=== PATIENT | male | born 1985 | race Caucasian/White ===

== ENCOUNTER 2022-11-08 15:40 | Observation (INO) | payer BC, SELFPAY ==
[2022-11-08] VITALS (21 sets, daily range): BP systolic 145–252; BP diastolic 73–140; PULSE 61–94; RESP 15–28; TEMP 36.5–36.8; O2SAT 93–99; BMI 26.2; BMI 26.5
--- NOTE | ~2022-11-08 | XR_ITS ---
EXAMINATION: XR chest 2V 11/08/2022 16:07 INDICATION: Chest pain PROCEDURE: 2 view chest COMPARISON: No prior studies for comparison. FINDINGS: The lungs are clear. The cardiomediastinal silhouette is within normal limits. There are no pleural effusions. There is no pneumothorax suspected. IMPRESSION: 1: NO ACUTE CARDIOPULMONARY DISEASE. Reviewed, dictated and finalized at location A.
--- NOTE | ~2022-11-08 | CT_ITS ---
EXAMINATION: CTA chest DATE: 11/08/2022 20:08 INDICATION: Chest pain TECHNIQUE: Computed tomographic angiography (CTA) of the chest was performed with 100 mL Omnipque-350 intravenous contrast. Maximum intensity projection 3D-reconstructions of the aorta and other arterie s were constructed by the technologist on a separate workstation. The dose-length product (DLP) was 4 43.15 mGy-cm. Automated exposure control and iterative reconstruction technique were employed. COMPARISON: None. FINDINGS: There is no aneurysm or dissection of the thoracic aorta. No pathologically enlarged thorac ic lymph nodes are identified. The heart size is normal. The lungs are free of acute opacities. No pl eural effusion or pneumothorax. There is mild thoracic spondylosis. IMPRESSION: 1. No aneurysm or dissection of the thoracic aorta. Reviewed, dictated and finalized at location F.
--- NOTE | 2022-11-08 15:41 | ECG_ITS ---
Measurements Intervals [place] Rate: 95 P: 16 RI: 135 QRS: 3 QRSD: 106 T: 70 QT: 346 QTc: 435 Interpretive Statements SINUS RHYTHM LEFT VENTRICULAR HYPERTROPHY AND ST-T CHANGE PEAKED T WAVES- CONSIDER HYPERKALEMIA ABNORMAL ECG NO PREVIOUS ECG AVAILABLE FOR COMPARISON Electronically Signed On 11-08-2022 15:48:09 CDT by Remi Ball D.O.
[2022-11-08 16:02] LABS: Basophils Absolute Auto 0.1 K/mm3 (0.0-0.1); Basophils Percent Auto 0.9 % (0.2-1.2); Eosinophils Absolute Auto 0.1 K/mm3 (0-0.3); Eosinophils Percent Auto 1.1 % (0-4.4); Hematocrit 47.6 % (42.0-52.0); Hemoglobin 16.4 g/dL (14.0-18.0); Immature Granulocyte Absolute 0.03 K/mm3 (0.00-0.031); Immature Granulocyte Percent A 0.3 % (0-0.5); Lymphocytes Absolute Auto 3.21 K/mm3 (0.9-3.2); Lymphocytes Percent Auto 30.7 % (18.3-44.2); Mean Corpuscular HGB Conc 34.5 g/dl (32-36); Mean Corpuscular Hemoglobin 29.3 pg (26-34); Mean Platelet Volume 9.5 fl (7.4-10.4); Monocytes Absolute Auto 0.9 K/mm3 (0.1-0.6); Monocytes Percent Auto 8.9 % (2.6-8.5); Neutrophils Absolute Auto 6.1 K/mm3 (1.3-6.7); Neutrophils Percent Auto 58.1 % (45.5-73.1); Platelet Count Result 254 k/mm3 (150-375); Red Cell Distribution Width 13.6 % (11.5-14.5); White Blood Count 10.5 K/mm3 (4.5-10.0)
[2022-11-08 16:12] LABS: Alanine Aminotransferase 26 U/L (6-50); Alkaline Phosphatase 53 U/L (38-126); Anion Gap 7 mmol/L (8-16); Aspartate Amino Transferase 27 U/L (17-59); Blood Urea Nitrogen 16 mg/dL (9-20); Carbon Dioxide 29 mmol/L (22-30); Chloride 103 mmol/L (98-107); Estimated CRCL calculation 127 ml/min; Estimated Glomerular Filt Rate > 60; Glucose 107 mg/dL (65-110); Lipase 196 U/L (23-300); Potassium 3.7 mmol/L (3.4-5.0); Sodium 139 mmol/L (137-145)
[2022-11-08 16:14] LABS: INR 1.1; Partial Thromboplastin Time 26.3 SECONDS (22.3-36.8); Prothrombin Time 13.4 Seconds (11.1-14.7)
[2022-11-08 16:24] LABS: Troponin I < 0.012 ng/mL (0.000-0.034)
--- NOTE | 2022-11-08 16:58 | ED.CHESTPAIN ---
HPI - Chest Pain General Chief Complaint: Chest Pain Stated Complaint: CP, high BP Time Seen by Provider: 11/08/22 15:54 Source: patient and family Mode of arrival: ambulatory Limitations: no limitations History of Present Illness HPI narrative: 37 years old white female presents with chest discomfort over the last few months, getting worse, and intermittent palpitation, weird feeling unable to explain. Intermittent tightness of left arm, could not sleep last night, went to work today, continue and went to home elderly. Patient denies any medical history, smokes, uses marijuana, drinks occasionally, increased drinking lately. Currently feeling weird across the chest unable to specify. He denies any fever, chills, nausea, vomiting shortness of breath Related Data Home Medications Medication Instructions Recorded Confirmed No Home Medications 11/08/22 11/08/22 Allergies Allergy/AdvReac Type Severity Reaction Status Date / Time No Known Allergies Allergy Verified 11/08/22 16:11 Review of Systems Review of Systems: All systems reviewed & are unremarkable except as noted in HPI and below Exam Narrative: General appearance: Well-developed, well-nourished Skin: Normal color Head: Normocephalic, nontraumatic Eyes: Clear conjunctiva ENT: Oropharynx normal, ears normal, nose normal Neck: Supple, nontender Chest and respiratory: Airway patent, no respiratory distress, no accessory muscle use Heart: Regular rate/rhythm Abdomen: Soft, nontender, no organomegaly, quiet bowel sounds Vascular: Normal peripheral pulses, normal capillary refill. Musculoskeletal: Normal range of motion, nontender back Neurologic: Alert and oriented ?3, [employer]CE is normal as tested, no gross motor deficit Course Reevaluation(s) Reevaluation #1: Patient feeling much better after receiving Lopressor and Nitropaste. Date: 11/08/22 Time: 18:58 Consultations Consultation #1: Dr. Beck, admit to hospitalist, nifedipine 30 mg p.o. daily Date: 11/08/22 Time: 18:58 Vital Signs Vital signs: Vital Signs Pulse Rate 93 11/08/22 15:50 Respiratory Rate 20 11/08/22 15:50 Blood Pressure 252/124 H 11/08/22 15:50 Pulse Oximetry 98 11/08/22 15:50 Oxygen Delivery Room Air 11/08/22 15:50 Temperature 36.8 C 11/08/22 15:56 Pulse Rate 65 11/08/22 18:03 Respiratory Rate 16 11/08/22 18:03 Blood Pressure 195/120 H 11/08/22 18:03 Pulse Oximetry 97 11/08/22 18:03 Oxygen Delivery Room Air 11/08/22 15:56 MDM - Chest Pain MDM Narrative Medical decision making narrative: Patient presents with intermittent chest pain, arm pain, palpitation, got worse lately, could not work today and came to our emergency room with chest discomfort unable to explain. Blood pressure on arrival 252/124. Patient does not take medicine at home, he smokes cigarettes and drinks almost daily denying any drug use. EKG on arrival showed LVH criteria with ST-T changes. Differential diagnosis cardiomegaly secondary to uncontrolled hypertension, coronary artery disease. Work-up today showed troponin of less than 0.012, chest x-ray showed no abnormality. Patient received Lopressor 5 mg IV x 3, Nitropaste 1 inch. Blood pressure dropped 189/106 with heart rate 62/min then nifedipine [address] Beck was consulted, patient will be admitted to IMU for further evaluation. Lab Data 11/08/22 15:55 11/08/22 15:55 Labs: Lab Results 11/08/22 11/08/22 11/08/22 Range/Units 15:55 15:55 15:55 WBC 10.5 H (4.5-10.0) K/mm3 RBC 5.60 (4.6-6.20) M/mm3 Hgb 16.4 (14.0-18.0) g/dL Hct 47.6 (42.0-52.0) % MCV 85.0 (80-100) fl [facility]
[2022-11-08] MEDS: ASPIRIN 81 MG CHEWABLE TABLET 324 MG PO (17:20)
[2022-11-08] MEDS: NITROGLYCERIN OINTMENT 1 INCH DOSE TRANSDERM ×2 (17:21→18:36)
[2022-11-08] MEDS: METOPROLOL TARTRATE INJ 5 MG/5 ML VIAL IV PUSH ×3 (17:22→17:32)
[2022-11-08 18:43] LABS: NT Pro B Type Natriuretic Pept 277 pg/mL (19.9-100)
[2022-11-08 19:02] LABS: Troponin I < 0.012 ng/mL (0.000-0.034)
--- NOTE | 2022-11-08 19:19 | PC.NURSE ---
RN assumed care. Received report from Cat RN
[2022-11-08] MEDS: NIFEdipine 10 MG CAPSULE 30 MG PO (20:01)
[2022-11-08 21:34] LABS: Amphetamine Screen Urine Negative (Negative); Barbiturate Screen Urine Negative (Negative); Benzodiazepines Screen Urine Negative (Negative); Cannabinoid Screen Urine Positive (Negative); Cocaine Screen Urine Negative (Negative); Methadone Screen Urine Negative (Negative); Opiate Screen Urine Negative (Negative); Phencyclidine Screen Urine Negative (Negative)
--- NOTE | 2022-11-08 21:41 | ADMGEN ---
This patient, Nando Mcdonald, was admitted to IMU Room 210-01 at 2115. Patient/family oriented to hospital policies and general routines including ID bracelet, bed and alarms, visiting hours, pain management, procedures, bathroom and other care routines, personal items, smoking policy, room service/diet, and visiting hours. Information on how to activate the Rapid Response Team has been discussed. Patient/Family are encouraged to report perceived risks to care and to ask questions if they do not understand what they are told or what they should do.
[2022-11-08 22:21] LABS: Troponin I < 0.012 ng/mL (0.000-0.034)
[2022-11-09] VITALS (17 sets, daily range): BP systolic 159–203; BP diastolic 92–109; PULSE 58–88; RESP 14–20; TEMP 36.4–37; O2SAT 97–100
--- NOTE | 2022-11-09 | ECHO_ITS ---
Patient Info Name: Nando Mcdonald Age: 37 years : 1985 Gender: Male Ht: 70 in Wt: 182 lbs BSA: 2.03 m2 HR: 58 bpm BP: 159 / 92 mmHg Heart Rhythm: Sinus Rhythm Technical Quality: Good Exam Date: 11/09/2022 7:39 AM Exam Location: [facility] Card Pulmonary Patient Status: Inpatient Admit Date: 11/08/2022 Staff Ordering Physician: Antonino Alberto MD Student Services Rep: Shanti Arthur RDCS Attending Provider: June Small DO Referring Physician: Remy PORTILLO; Exam Type: CA echo doppler color flow Study Info Indications I10 - Essential (primary) hypertension Complete two-dimensional, color flow and Doppler transthoracic echocardiogram is performed. Summary 1. Complete two-dimensional, color flow and Doppler transthoracic echocardiogram is performed. 2. Left ventricular chamber dimension is normal. 3. Left ventricular systolic function is normal, estimated at 65-70%. 4. There is severe concentric increased left ventricular wall thickness. 5. The left ventricular diastolic function is grade I diastolic dysfunction. 6. Right ventricular systolic function is normal. 7. Left atrial chamber dimension is severely enlarged. 8. Right atrial chamber dimension is mildly enlarged. 9. There is trace mitral valve regurgitation. 10. There is trace tricuspid valve regurgitation. Left Ventricle Left ventricular chamber dimension is normal. Left ventricular systolic function is normal, estimated at 65-70%. There is severe concentric increased left ventricular wall thickness. The left ventricular diastolic function is grade I diastolic dysfunction. Right Ventricle Right ventricular chamber dimension is normal. Right ventricular systolic function is normal. Left Atria Left atrial chamber dimension is severely enlarged. Right Atria Right atrial chamber dimension is mildly enlarged. Atrial Septum Intact interatrial septum visualized by color flow imaging. Aortic Valve The aortic valve is probable trileaflet. There is no aortic valve stenosis. There is no aortic valve regurgitation. Pulmonic Valve The pulmonic valve is not well visualized. Mitral Valve The mitral valve has normal leaflets. There is no mitral valve stenosis. There is trace mitral valve regurgitation. Tricuspid Valve There is no significant tricuspid valve stenosis. There is trace tricuspid valve regurgitation. Pericardium/Pleural There is no pericardial effusion. Inferior Vena Cava Normal inferior vena cava with >50% collapse upon inspiration consistent with normal right atrial pressure, 3 mmHg. Aorta The aortic root size at the sinus of Valsalva is normal. Left Ventricular Outflow Tract Name Value Normal LVOT 2D LVOT Diameter 2.0 cm LVOT Doppler LVOT Peak Gradient 8 mmHg LVOT Mean Gradient 4 mmHg LVOT VTI 24 cm LVOT VTI/AV VTI Ratio 0.8 LVOT Stroke Volume 75 ml LVOT CO 5.0 l/min LVOT CI 2.
--- NOTE | 2022-11-09 00:07 | PM.IMHP ---
H&P: HPI History of Present Illness Date/Time: 11/09/22 00:07 Chief Complaint: Chest pain Narrative: Patient is a 37-year-old male with no past medical history, has not been to a doctor in years, coming in for on and off chest pains for over a month patient says that he would have some substernal chest pain not associated with any exertional activity on and off for about 1-2 months now he said that when these episodes happen he would feel a little bit of numbness on his left arm. He denies any headache or syncopal episode or loss of consciousness. Sometimes she would feel some palpitations. He denies any fever, nausea vomiting diarrhea or dysuria. He said that the episodes have been increasing in frequency lately that is why he came to the emergency room. On arrival patient had a blood pressure reading of 200/130 for which he was given metoprolol 5 mg IV x3 cardiology was consulted and recommended nifedipine 30 mg as well patient says he has no history of hypertension and denies any history of hypertension in his family as well. He said he used to drink alcohol heavily but has stopped that for years and now would only drink occasionally on weekends. He smokes half a pack a day for about 20 years. He denies any IV drug use but admits to some marijuana use. He says he does not take any home meds. Review of Systems Review of Systems: no fever or weight loss no vision changes, no eye discharge no throat pain, no hoarseness, no lymphadenopathy Minimal chest pain, occasional palpitations no coughing, no wheezing no abdominal pain, no diarrhea, no nausea, no vomiting no dysuria, no vaginal discharge no leg swelling, no edema no suicidal or homicidal ideation [facility] Family History Family History (Updated 11/08/22 @ 21:39 by Haritha Bishop RN) Other Unknown family medical history Social History Social History Smoking packs per day: 0.5 Smoking cigarettes per day: 10.0 Smoking status: Current every day smoker Tobacco type: cigarettes Alcohol intake: current Drinks per week: 5 Substance use: current Substance use type: marijuana Lack of Transportation: No Lack of Food: Never True Current Housing: I Have Housing Concerned About Future Housing: No Difficulty Paying Gas/Electric Bills: No Difficulty Paying for Meds: No Currently Unemployed: No Education: Associate Degree Difficulty w/ Childcare or Family Care: No Spiritual care concerns: No Meds Home Medications and Allergies Home Medications Medication Instructions Recorded Confirmed Type No Home Medications 11/08/22 11/08/22 History Allergies Allergy/AdvReac Type Severity Reaction Status Date / Time No Known Allergies Allergy Verified 11/08/22 16:11 Vital Signs Vital Signs - 24 hr 11/08/22 15:56 11/08/22 15:50 11/08/22 15:50 Temperature 98.3 F Pulse Rate 94 93 Respiratory Rate 24 H 20 Blood Pressure 248/140 H 252/124 H Pulse Oximetry 99 98 Oxygen Delivery Room Air Room Air 11/08/22 17:22 11/08/22 17:27 11/08/22 17:32 Temperature Pulse Rate 86 73 70 Respiratory Rate Blood Pressure Pulse Oximetry Oxygen Delivery 11/08/22 18:03 11/08/22 16:31 11/08/22 16:46 Temperature Pulse Rate 65 89 94 Respiratory Rate 16 27 H 21 H Blood Pressure 195/120 H 219/126 H 222/116 H Pulse Oximetry 97 94 97 Oxygen Delivery 11/08/22 17:16 11/08/22 17:21 11/08/22 17:45 Temperature Pulse Rate 81 84 68 Respiratory Rate 26 H 28 H 27 H Blood Pressure 206/126 H 230/126 H 223/134 H Pulse Oximetry 93 94 95 Oxygen Delivery 11/08/22 18:13 11/08/22 18:33 11/08/22 19:00 Temperature Pulse Rate 65 62 61 Respiratory Rate 22 H 23 H 21 H Blood Pressure 195/120 H 189/106 H 176/97 H Pulse Oximetry 95 96 95 Oxygen Delivery 11/08/22 19:13 11/08/22 20:00 11/08/22 20:00 Temperature 98.3 F Pulse Rate 67 Respiratory Rate
[2022-11-09] MEDS: ASPIRIN 81 MG CHEWABLE TABLET PO (08:51)
[2022-11-09] MEDS: hydroCHLOROthiazide 25 MG TABLET PO (09:58)
[2022-11-09] MEDS: NIFEdipine 30 MG TAB.ER.24 PO (09:58)
--- NOTE | 2022-11-09 11:08 | PM.CNCAR ---
Assessment and Plan Assessment and plan (1) Hypertension, uncontrolled: Code(s): I10 - Essential (primary) hypertension Status: Acute Assessment and Plan: Continue with Nifedipine. Will add HCTZ. Echocardiogram pending. If echocardiogram is without significant abnormality, and his blood pressure is controlled, then can discharge home from my standpoint. He does not have a PCP but is working on making an appointment with one. (2) Chest pain: Code(s): R07.9 - Chest pain, unspecified Status: Acute Assessment and Plan: Resolved. Likely due to severe uncontrolled blood pressure. Troponins negative. EKG without ischemic changes. History of Present Illness History of Present Illness Consult date/time: 11/09/22 11:08 Requesting physician: Antonino Alberto MD Consult reason: chest pain and hypertension Reason For Visit: Chest Pain/Uncontrolled Hypertension/Abnormal EKG Narrative: We are consulted for chest pain, hypertension. This is a 37-year-old male who no past medical history who presented with chest pain for about the past month. Not associated with exertion. In the ER, patient noted to be significantly hypertensive with BP of 252/124. No known history of hypertension. Does not take any medications at home. EKG showed sinus rhythm, LVH with secondary repolarization abnormalities. Troponins are negative. Patient given Metoprolol IV 5mg x 3 and Nifedipine 30mg x 1. Patient states his symptoms resolved when his blood pressure got better. Denies any symptoms this morning. States he feels great and wishes to go home. Review of Systems Review of Systems: All systems reviewed & are unremarkable except as noted in HPI and below (HPI) [facility] Family History Family History Other Unknown family medical history Social History Social History Smoking packs per day: 0.5 Smoking cigarettes per day: 10.0 Smoking status: Current every day smoker Tobacco type: cigarettes Alcohol intake: current Drinks per week: 5 Substance use: current Substance use type: marijuana Lack of Transportation: No Lack of Food: Never True Current Housing: I Have Housing Concerned About Future Housing: No Difficulty Paying Gas/Electric Bills: No Difficulty Paying for Meds: No Currently Unemployed: No Education: Associate Degree Difficulty w/ Childcare or Family Care: No Spiritual care concerns: No Meds Home Medications and Allergies Home Medications Medication Instructions Recorded Confirmed Type No Home Medications 11/08/22 11/08/22 History Allergies Allergy/AdvReac Type Severity Reaction Status Date / Time No Known Allergies Allergy Verified 11/08/22 16:11 Vital Signs Vital Signs - 24 hr 11/08/22 15:56 11/08/22 15:50 11/08/22 15:50 Temperature 36.8 C Pulse Rate 94 93 Respiratory Rate 24 H 20 Blood Pressure 248/140 H 252/124 H Pulse Oximetry 99 98 Oxygen Delivery Room Air Room Air 11/08/22 17:22 11/08/22 17:27 11/08/22 17:32 Temperature Pulse Rate 86 73 70 Respiratory Rate Blood Pressure Pulse Oximetry Oxygen Delivery 11/08/22 18:03 11/08/22 16:31 11/08/22 16:46 Temperature Pulse Rate 65 89 94 Respiratory Rate 16 27 H 21 H Blood Pressure 195/120 H 219/126 H 222/116 H Pulse Oximetry 97 94 97 Oxygen Delivery 11/08/22 17:16 11/08/22 17:21 11/08/22 17:45 Temperature Pulse Rate 81 84 68 Respiratory Rate 26 H 28 H 27 H Blood Pressure 206/126 H 230/126 H 223/134 H Pulse Oximetry 93 94 95 Oxygen Delivery 11/08/22 18:13 11/08/22 18:33 11/08/22 19:00 Temperature Pulse Rate 65 62 61 Respiratory Rate 22 H 23 H 21 H Blood Pressure 195/120 H 189/106 H 176/97 H Pulse Oximetry 95 96 95 Oxygen Delivery 11/08/22 19:13 11/08/22 20:00 11/08/22 20:00 Temperature 36.8 C Pulse Rate
--- NOTE | 2022-11-09 12:23 | PC.NURSE ---
Notified Dr. Perry of patient's BP of 191/105 at 1130. Pt received anti-hypertensive medications at 1000. This RN rechecked BP at 1215 at it was 220/110. Dr. Perry will add another anti-hypertensive medication, and we will continue to monitor.
--- NOTE | 2022-11-09 16:15 | PC.NURSE ---
Notified Dr. Rob of elevated BP of 203/103 L arm and 203/105 R arm. Pt also requesting a Nicotine patch at this time. Dr. Perry has placed an order for 25mg PO of Hydralazine q6h PRN for SBP >180. This RN will administer this now with the Nicotine patch and recheck BP in about an hour.
[2022-11-09] MEDS: NICOTINE (*PBKC) 21 MG PATCH 1 PATCH TRANSDERM (16:24)
[2022-11-09] MEDS: hydrALAZINE HCL 25 MG TABLET PO (16:24)
--- NOTE | 2022-11-09 17:43 | PM.IMPN ---
Progress Note: A&P Assessment and Plan (1) Hypertension, uncontrolled: Code(s): I10 - Essential (primary) hypertension Status: Acute Assessment and Plan: Patient came in with chest pain and elevated blood pressure of up to 200/130. CTA was ordered but no aneurysm or dissection of the thoracic aorta seen. He was given metoprolol IV 5 mg x 3 as well as nifedipine 30 mg. Nifedipine adjusted and hydrochlorothiazide was added. EKG showed LVH with ST T wave changes in peaked T-waves. Potassium was normal. Echocardiogram showed EF of 65-70% with severe concentric LV wall thickness and grade 1 diastolic dysfunction. He also had severe left atrial enlargement and mild right atrial enlargement. Lifestyle and dietary modifications including low-salt diet have been stressed. Advised to follow up with the PCP for further follow-up. Hydralazine available as needed. Will add losartan. a (2) Chest pain: Code(s): R07.9 - Chest pain, unspecified Status: Acute Assessment and Plan: Patient came in with chest pain and elevated blood pressure. Troponins are negative. EKG shows LVH consistent with longstanding hypertension. No acute ST or T-wave changes seen. Patient currently chest pain-free. Follow on tele (3) Tobacco abuse: Code(s): Z72.0 - Tobacco use Status: Acute Assessment and Plan: Nicotine patch ordered. Patient was educated about the benefits of smoking cessation. Subjective Date/time seen: 11/09/22 17:43 Interval history: 37yo healthy male here for chest pain and found to have HTN. Assuming care. Chart reviewed. He feels well. No chest pain. No shortness of breath. No headaches. He has a family history of hypertension. He does mention that when he was teenager it was noted that his blood pressure was elevated at that time. Family also states that the patient does have some issues with anxiety. Exam Narrative: AF 97.6 203/105 64 14 100% ra Gen - NARD Chest - CTA bilaterally, nml RR CV - RRR S1/S2. Telemetry showing no significant dysrhythmias Abd - Soft, NT/ND, Positive BS Ext - No pedal edema Neuro - Alert and oriented. Nonfocal exam. Psych - Nml mood and affect Skin - Warm and dry Objective Data Vital Signs Vital Signs: Vital Signs - 24 hr 11/08/22 18:03 11/08/22 17:45 11/08/22 18:13 Temperature Pulse Rate 65 68 65 Respiratory Rate 16 27 H 22 H Blood Pressure 195/120 H 223/134 H 195/120 H Pulse Oximetry 97 95 95 Oxygen Delivery 11/08/22 18:33 11/08/22 19:00 11/08/22 19:13 Temperature 98.3 F Pulse Rate 62 61 Respiratory Rate 23 H 21 H Blood Pressure 189/106 H 176/97 H Pulse Oximetry 96 95 Oxygen Delivery 11/08/22 20:00 11/08/22 20:00 11/08/22 20:30 Temperature Pulse Rate 67 76 Respiratory Rate 17 15 Blood Pressure 179/95 H 179/95 H Pulse Oximetry 97 99 Oxygen Delivery 11/08/22 20:45 11/08/22 21:20 11/08/22 22:30 Temperature 97.7 F Pulse Rate 87 90 Respiratory Rate 21 H 20 Blood Pressure 155/73 H Pulse Oximetry 96 98 Oxygen Delivery Room Air 11/08/22 22:00 11/08/22 23:24 11/08/22 23:33 Temperature 97.8 F Pulse Rate 79 68 Respiratory Rate 20 Blood Pressure 145/77 H Pulse Oximetry 97 Oxygen Delivery Room Air 11/09/22 00:00 11/09/22 03:40 11/09/22 04:00 Temperature Pulse Rate 64 58 L Respiratory Rate Blood Pressure Pulse Oximetry Oxygen Delivery Room Air 11/09/22 04:00 11/09/22 08:00 11/09/22 08:00 Temperature 98.0 F 98.5 F Pulse Rate 58 L 65 Respiratory Rate 18 14 Blood Pressure 159/92 H 186/98 H Pulse Oximetry 97 100 100 Oxygen Delivery Room Air 11/09/22 08:00 11/09/22 10:00 11/09/22 12:00 Temperature 98.5 F Pulse Rate 62 68 71 Respiratory Rate 20 Blood Pressure 191/105 H Pulse Oximetry 100 Oxygen Delivery 11/09/22 12:00 11/09/22 12:00 11/09/22 13:27 Temperature Pulse Rate 74 Respiratory
--- NOTE | 2022-11-09 17:52 | PC.NURSE ---
This RN rechecked BP an hour after administering PO hydralazine. BP's are: L arm 200/109, R arm 194/107. Dr. Rob at bedside at this time and aware of pressures.
[2022-11-09] MEDS: LOSARTAN POTASSIUM 25 MG TABLET PO (18:58)
[2022-11-09] MEDS: LORazepam INJ (*CRX) 2 MG/ML VIAL 0.5 MG IV PUSH (21:09)
[2022-11-09] MEDS: METOPROLOL TARTRATE INJ 5 MG/5 ML VIAL IV PUSH (23:28)
[2022-11-10] VITALS (12 sets, daily range): BP systolic 166–193; BP diastolic 100–113; PULSE 60–85; RESP 16–20; TEMP 36.7–37; O2SAT 97–99
--- NOTE | 2022-11-10 00:01 | PCRCNOTE ---
2255: Pt placed on apnea link.
[2022-11-10 04:33] LABS: Alanine Aminotransferase 24 U/L (6-50); Albumin Level 4.4 g/dL (3.5-5.1); Alkaline Phosphatase 44 U/L (38-126); Anion Gap 7 mmol/L (8-16); Aspartate Amino Transferase 22 U/L (17-59); Bilirubin Indirect 3.4 mg/dL (0-1.1); Bilirubin,Total 3.3 mg/dL (0.2-1.3); Blood Urea Nitrogen 15 mg/dL (9-20); Calcium 8.7 mg/dL (8.4-10.2); Carbon Dioxide 31 mmol/L (22-30); Chloride 101 mmol/L (98-107); Estimated CRCL calculation 113 ml/min; Estimated Glomerular Filt Rate > 60; Glucose 101 mg/dL (65-110); Potassium 3.8 mmol/L (3.4-5.0); Sodium 139 mmol/L (137-145)
[2022-11-10] MEDS: NIFEdipine 30 MG TAB.ER.24 PO ×2 (08:31→17:56)
[2022-11-10] MEDS: ASPIRIN 81 MG CHEWABLE TABLET PO (08:31)
[2022-11-10] MEDS: hydroCHLOROthiazide 25 MG TABLET PO (08:31)
[2022-11-10] MEDS: LOSARTAN POTASSIUM 50 MG TABLET PO (08:31)
[2022-11-10] MEDS: hydrALAZINE HCL 25 MG TABLET PO (08:31)
[2022-11-10] MEDS: NICOTINE (*PBKC) 21 MG PATCH 1 PATCH TRANSDERM (08:35)
[2022-11-10] MEDS: METOPROLOL TARTRATE INJ 5 MG/5 ML VIAL IV PUSH (14:35)
--- NOTE | 2022-11-10 17:19 | PM.DS ---
DS: Admitting Diagnosis Discharge Date 11/10/22 Admitting Diagnosis Chest pain DS: Discharge Diagnosis Discharge Diagnosis (1) Hypertension, uncontrolled: Code(s): I10 - Essential (primary) hypertension Status: Acute (2) Chest pain: Code(s): R07.9 - Chest pain, unspecified Status: Acute (3) Tobacco abuse: Code(s): Z72.0 - Tobacco use Status: Acute DS: Summary Hospital Course Reason for hospitalization: 37yo healthy male here for chest pain and found to have uncontrolled HTN. Please see H&P for detail. Hospital Course: Patient presented with chest pain and found to have elevated blood pressure of up to 248/1140. CTA was ordered but no aneurysm or dissection of the thoracic aorta seen. He was given metoprolol IV 5 mg x 3 as well as nifedipine 30 mg.? Nifedipine adjusted and hydrochlorothiazide was added.? Troponins were negative.? EKG showed LVH with ST T wave changes in peaked T-waves.? Potassium was normal.? Echocardiogram showed EF of 65-70% with severe concentric LV wall thickness and grade 1 diastolic dysfunction.? He also had severe left atrial enlargement and mild right atrial enlargement.? Lifestyle and dietary modifications including low-salt diet have been stressed.?Losartan added and Nifedipine increased. Chest pain resolved. Apnea link was normal. Patient was educated about the benefits of smoking cessation. He began to feel better. he overall did well and was able to be discharged home on 11/10/22 Status at Discharge Cognitive/behavioral status at discharge: Stable Time Spent with Patient Time attestation: Total time spent providing and/or coordinating discharge services: 35 minutes Time spent: Greater than 30 minutes Exam Narrative: AF 98.4 190/100 82 20 99% ra Gen - NARD Chest - CTA bilaterally, nml RR CV - RRR S1/S2. Telemetry showing no significant dysrhythmias Abd - Soft, NT/ND, Positive BS Ext - No pedal edema Psych - Nml mood and affect Skin - Warm and dry DS: Data Data Completed and Pending Labs on day of discharge: Labs from last 24 hours 11/10/22 11/10/22 11/10/22 03:57 03:56 03:56 Sodium 139 Potassium 3.8 Chloride 101 Carbon Dioxide 31 H Anion Gap 7 L BUN 15 Creatinine 0.80 Estim Creat Clear Calc 113 Estimated GFR > 60 Glucose 101 Calcium 8.7 Total Bilirubin 3.3 H Indirect Bilirubin 3.4 H AST 22 ALT 24 Alkaline Phosphatase 44 Total Protein 7.0 Albumin 4.4 TSH (Reflex) 1.820 Random Cortisol 11.20 Discharge Plan Discharge Attending physician on discharge: Man Rob Consulting providers: Hoa Beck Discharging Clinician: Man Rob Anticipated Discharge Date/Time: 11/10/22 17:28 Patient Disposition: Home, Self-Care Activity: as tolerated Diet: heart healthy and low sodium Discharge Instructions: Check blood pressure 1 to 2 times a day. Record and bring into your doctor for review. Call your doctor if your blood pressure is greater than 190/110. Contact your doctor or call 911 and come to the Emergency Room if you have chest pain, weakness on one side of your face/body or other worrisome symptoms. Avoid NSAIDs (ibuprofen, naproxen, Aleve). Tylenol is safe to take. Stop using all products that contain tobacco or nicotine. Follow-up with your primary care provider in 1-2 weeks. Please call for appointment. Thank you for using [facility] for your health care needs. Patient Instructions: Antibiotic Form, Nicardipine (By mouth), Hydrochlorothiazide (By mouth), How to Stop Smoking (DC), Heart Healthy Diet (DC), Hypertension (DC) Stand Alone Forms: General Discharge Information Follow-up/Referrals: [facility] [Primary Care Provider] - Call for Appointment Discharge Medications: New hydrochlorothiazide 25 mg Tablet 25 mg PO QAM Qty: 30 1RF losartan [Cozaar] 50 mg Tablet 50 m
== END 2022-11-10 18:00 | disposition home or self-care (01) ==
LOC: ANHED 18:59 → ANHIMU 11-09 00:26
PROVIDERS: Emergency Medicine; Admitting Provider Internal Medicine; Emergency Provider Emergency Medicine; Visit Provider Internal Medicine
DX: I11.9 Hypertensive heart disease without heart failure (principal); R07.9 Chest pain, unspecified; R20.0 Anesthesia of skin; R94.31 Abnormal electrocardiogram [ECG] [EKG]; F17.210 Nicotine dependence, cigarettes, uncomplicated; F12.90 Cannabis use, unspecified, uncomplicated
CPT/HCPCS: 36415; 71046; 71275; 80053; 80307; 82533; 83690; 83880; 84443; 84484; 85025; 85610; 85730; 93005; 93306; 94762; 96374; 96375; 96376; 99285; A9270; G0378; J2060; Q9967